=== PATIENT | female | born 1945 | race Caucasian/White ===

== ENCOUNTER 2023-12-15 13:52 | Outpatient (CLI) | payer MEDICARE, MEDICAID, SELFPAY ==
--- NOTE | ~2023-12-15 | XR_ITS ---
XR shoulder RT min 2V Ordering provider: David Almodovar MD History: . M75.31 - Calcific tendinitis of right shoulder, CHRONIC PAIN . Comparison: May 21, 2023 FINDINGS: BONES: No acute fracture or dislocation. JOINT SPACES: The acromioclavicular joint is normal. The glenohumeral joint is normal. SOFT TISSUES: Ossification the area of the supraspinatus tendon insertion is noted. IMPRESSION: No acute osseous abnormality right shoulder. Possible calcific tendinitis in the supraspinatus tendon . Reviewed, dictated and finalized at location A. IMPRESSION: No acute osseous abnormality right shoulder. Possible calcific tendinitis in th e supraspinatus tendon.
--- NOTE | ~2023-12-15 | XR_ITS ---
XR shoulder LT min 2V Ordering provider: David Almodovar MD History: . M75.82 - Other shoulder lesions, left shoulder, CHRONIC PAIN . Comparison: August 06, 2022 FINDINGS: BONES: No acute fracture or dislocation. JOINT SPACES: The acromioclavicular joint shows osteoarthritic changes. The glenohumeral joint is nor mal. SOFT TISSUES: Normal. Left sided pacemaker is noted. Postoperative changes in the cervical spine. IMPRESSION: No acute fracture or dislocation. Osteoarthritic changes of the left acromioclavicular joint. Reviewed, dictated and finalized at location A. IMPRESSION: No acute fracture or dislocation. Osteoarthritic changes of the left acromiocla vicular joint.
== END 2023-12-15 13:53 | disposition home or self-care (01) ==
LOC: ANHIMG 13:54
PROVIDERS: PCP Internal Medicine; Visit Provider Orthopaedic Surgery
DX: M75.82 Other shoulder lesions, left shoulder (principal); M19.012 Primary osteoarthritis, left shoulder; M75.31 Calcific tendinitis of right shoulder
CPT/HCPCS: 73030

== ENCOUNTER 2024-06-14 09:17 | Outpatient (CLI) | payer MEDICARE, MEDICAID, SELFPAY ==
--- NOTE | ~2024-06-14 | XR_ITS ---
Left Shoulder Technique: AP and scapular Y views were obtained. Clinical History: Osteoarthritis COMPARISON: 12/15/2023 Findings: No fracture or dislocation is seen. Questionable high riding humeral head. The glenohumeral joint is otherwise intact. There is moderate AC joint degenerative change. Soft tissues are unremark able. Impression: No acute fracture or dislocation. Possible high riding humeral head. Consider underlying rotator cuff tear. Moderate AC joint degenerative change. Reviewed, dictated and finalized at location . OR BENEFITS SPECIALIST Impression: No acute fracture or dislocation. Possible high riding humeral head. Consider underlying rotator cuff tear. Moderate AC joint degenerative change.
--- NOTE | ~2024-06-14 | XR_ITS ---
Right Shoulder Technique: AP and scapular Y views were obtained. Clinical History: Osteoarthritis Findings: No fracture or dislocation is seen. Osseous alignment is anatomic. The glenohumeral joint i s intact. There is moderate to advanced AC joint degenerative change. Soft tissues are unremarkable. Impression: Moderate to advanced AC joint degenerative change. Reviewed, dictated and finalized at location . UDER OPERATOR HELPER Impression: Moderate to advanced AC joint degenerative change.
== END 2024-06-14 09:18 | disposition home or self-care (01) ==
PROVIDERS: PCP Internal Medicine; Visit Provider Orthopaedic Surgery
DX: M19.011 Primary osteoarthritis, right shoulder (principal); M19.012 Primary osteoarthritis, left shoulder
CPT/HCPCS: 73030

== ENCOUNTER 2025-03-03 13:30 | Outpatient (RCR) | payer SELFPAY | END 2025-03-03 23:59 | disposition home or self-care (01) | LOC: ANHAUDIO 13:30 | PROVIDERS: PCP Internal Medicine | DX: Z46.1 Encounter for fitting and adjustment of hearing aid (principal) | CPT/HCPCS: 99199; V5261 ==

== ENCOUNTER 2025-05-16 13:49 | Outpatient (CLI) | payer MEDICARE, SELFPAY ==
--- NOTE | ~2025-05-16 | XR_ITS ---
EXAMINATION: XR shoulder LT min 2V, 05/16/2025 14:07 WOOD CREW SUPERVISOR HISTORY: M19.012 - Primary osteoarthritis, left shoulder COMPARISON: No comparisons available. Findings: No acute fracture or malalignment. Moderate degenerative changes Soft tissues unremarkable. Impression: No acute fracture or malalignment. Reviewed, dictated and finalized at location P. CREW SUPERVISOR Impression: No acute fracture or malalignment.
--- NOTE | ~2025-05-16 | XR_ITS ---
EXAMINATION: XR shoulder RT min 2V, 05/16/2025 14:07 INTERNATIONAL RELATIONS TEACHER HISTORY: M75.31 - Calcific tendinitis of right shoulder COMPARISON: No comparisons available. Findings: No acute fracture or malalignment. Moderate degenerative changes Soft tissues unremarkable. Impression: No acute fracture or malalignment. Reviewed, dictated and finalized at location P. RNATIONAL RELATIONS TEACHER Impression: No acute fracture or malalignment.
--- OUTSIDE RECORDS SUMMARY | 2025-05-16 15:31 | XMS_ITS | Clinical Summary ---
Author Organization [facility] al Address [address] [place] [address] Care Team Providers Care Child And Family Services Worker Name Role Phone Kenny Flowers MD Primary Care Provider Allergies Active Allergy Reactions Criticality Noted Date Comments Amitriptyline Morphine Medications oxyCODONE (ROXICODONE) 5 mg immediate release tabletIndication s:Pain Take 1 tablet (5 mg total) by mouth every 8 (eight) hours as needed for pain 15 tablet 06/11/2024 Active Active Problems No known active problems Surgical History Surgery Date Site/Laterality Comments CATARACT EXTRACTION Cataract Surgery - (Added by TW Conv) CORONARY ARTERY BYPASS GRAFT Coronary Artery Surgery - (Added by TW Conv) KNEE SURGERY Knee Surgery - (Added by TW Conv) NECK SURGERY Neck Surgery - (Added by TW Conv) Medical History Medical History Date Comments Anxiety disorder Anxiety - (Adde d by TW Conv) Personal history of other ma lignant neoplasm of skin History of basal cell carcin hiral - (Added by TW Conv) Personal history of other me ntal and behavioral disorders History of depression - (Add ed by TW Conv) Pure hypercholesterolemia High c holesterol - (Added by TW Conv) Personal history of other me ntal and behavioral disorders History of mental disorder - (Added by TW Conv) 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 (HCC) Ulcer - (Added b y TW Conv) Atherosclerotic heart diseas e of [place] coronary artery without angina pectoris CAD (coronary artery disease) - (Added by TW Conv) Personal history of other di seases of the circulatory system History of hypertension - (A dded by TW Conv) Family History Medical History Relation Name Comments Bone cancer Brother Bone cancer - ( Added by TW Conv) Lung cancer Brother Family history of lung cancer - (Added by TW Conv) Non-Hodgkin's Lymphoma Brother Famil y history of non-Hodgkin's lymphoma - (Added by TW Conv) Bone cancer Mother Bone cancer - ( Added by TW Conv) Heart disease Mother Family history of cardiac disorder - (Added by TW Conv) Lung cancer Mother Family history of lung cancer - (Added by TW Conv) Non-Hodgkin's Lymphoma Mother Famil y history of non-Hodgkin's lymphoma - (Added by TW Conv) Non-Hodgkin's Lymphoma Sister Famil y history of non-Hodgkin's lymphoma - (Added by TW Conv) Relation Name Status Comments Brother Mother Sister Social History Tobacco Use Types Packs/Day Years Used Date Smoking Tobacco: Former Personal Safety Answer Date Recorded Have you ever been in or are you currently in a harmful physical or emotional relationship or is someone making you feel afraid or unsafe? Denies 06/10/2024 Comments Unknown Sex and Gender Information Value Date Recorded Sex Assigned at Not on file Legal Sex Female 12:43 AM BUSINESS SOLUTIONS ANALYST Gender Identity Not on file Sexual Orientation Not on file Last Filed Vital Signs Vital Sign Reading Time Taken Comments Blood Pressure 165/86 06/11/2024 12:00 AM BUSINESS SOLUTIONS ANALYST Pulse 75 06/11/2024 12:00 AM BUSINESS SOLUTIONS ANALYST Temperature 36.7 C (98 F) 06/10/2024 6:49 PM BUSINESS SOLUTIONS ANALYST Respiratory Rate 19 06/11/2024 12:0 0 AM BUSINESS SOLUTIONS ANALYST Oxygen Saturation 97% 06/11/2024 12: 00 AM BUSINESS SOLUTIONS ANALYST Inhaled Oxygen Concentration - - Weight 70.3 kg (154 lb 15.7 oz) 06/10/2024 6:49 PM BUSINESS SOLUTIONS ANALYST Height 157.5 cm (5' 2.01) 06/10/2024 6:49 PM CS T Body Mass Index 28.34 06/10/2024 6:49 PM BUSINESS SOLUTIONS ANALYST Plan of Treatment Health Maintenance Due Date Last Done Comments Depression Screening 1944 Fall Risk Assessment 1944 Osteoporosis Screening-Bone Density Scan 1944 DTaP/Tdap/Td Vaccine (1 - Tdap) 1955 Hepatitis B Screening 1962 Zoster Vaccine (1 of 2) 1994 Well Visit 65+ 2009 Covid-19 Vaccine (2024-2 6 season) 2025 10/26/2021, 04/06/2021, 09/11/2020, Additional history exists Influenza Vaccine (#1) 2025 , 05/04/2019, 04/28/2018, Additional history exists Pneumococcal vaccine 65+ Completed 04/28/2018, 07/2009 Insurance MEDICARE IDPA MEDICARE IDPA MEDICARE Care Teams Child And Family Services Worker Relationship Specialty Start Date End Date Kenny Flowers MD PCP - General 12/23/16
== END 2025-05-16 13:50 | disposition home or self-care (01) ==
PROVIDERS: PCP Internal Medicine; Visit Provider Orthopaedic Surgery
DX: M19.012 Primary osteoarthritis, left shoulder (principal); M75.82 Other shoulder lesions, left shoulder; M75.31 Calcific tendinitis of right shoulder; M19.011 Primary osteoarthritis, right shoulder
CPT/HCPCS: 73030